=== PATIENT | female | born 1970 | race American Indian/Alaskan Native ===

== ENCOUNTER 2024-06-11 18:18 | Emergency (ER) | payer MEDICAID, SELFPAY ==
[2024-06-11 18:32] VITALS: BP 160/90; PULSE 95; O2SAT 98
[2024-06-11 18:33] VITALS: BP 121/85; PULSE 115; RESP 20; TEMP 36.6; O2SAT 100; BMI 22.1
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
[2024-06-11 20:17] LABS: MANUAL DIFF FLAG NO
[2024-06-11 20:19] LABS: Basophils Absolute Auto 0.1 X10*3/uL (0.0-0.2); Basophils Percent Auto 0.7 % (0-2); Eosinophils Percent Auto 0.2 % (0-4); Hematocrit 40.7 % (37.0-47.0); Hemoglobin 14.5 g/dl (12.0-16.0); Imm Gran Abs Auto 0.03 X10*3/uL (0.00-0.03); Imm Gran Pct Auto 0.3 % (0.0-0.4); Lymphocytes Absolute Auto 2.3 X10*3/uL (1.2-4.9); Lymphocytes Percent Auto 27.1 % (20-40); Mean Corpuscular HGB Conc 35.6 g/dl (31.0-35.0); Mean Corpuscular Hemoglobin 33.3 pg (27.0-33.0); Mean Corpuscular Volume 93.6 fL (80.0-98.0); Mean Platelet Volume 10.1 fL (9.4-12.3); Monocytes Absolute Auto 0.5 X10*3/uL (0.1-1.2); Monocytes Percent Auto 6.1 % (2-11); Neutrophils Absolute Auto 5.6 x10*3/uL (2.0-8.3); Neutrophils Percent Auto 65.6 % (45-73); Platelet Count 151 X10*3/uL (160-400); Red Blood Count 4.35 X10*6/uL (4.20-5.50); Red Cell Distribution Width 13.3 % (11.0-16.0); White Blood Count 8.6 X10*3/uL (4.8-10.8)
--- NOTE | 2024-06-11 20:43 | PC.NURSE ---
report called to hossein swann patient ambulatory into behavioral health pod at this time
[2024-06-11 20:47] LABS: Alanine Aminotransferase 15 U/L (0-31); Albumin Level 4.2 g/dL (3.5-5.0); Alkaline Phosphatase 96 U/L (39-117); Anion Gap 18 (12-20); Aspartate Amino Transferase 44 U/L (5-31); Bilirubin Direct 0.2 mg/dL (0.0-0.5); Bilirubin Total 0.5 mg/dL (0.0-1.0); Blood Urea Nitrogen 17 mg/dL (9-16); Carbon Dioxide 21 mmol/L (22-29); Chloride 106 mmol/L (96-108); Creatinine Clr Calc Pharmacy 88.1; Estimated Glomerular Filt Rate > 60; Ethanol 300 mg/dL; Glucose Random 92 mg/dL (60-115); HCG Quantitative < 2 mIU/mL; Potassium 3.7 mmol/L (3.3-5.1); Sodium 141 mmol/L (135-145); Total Protein 7.2 g/dL (6.5-8.0)
--- NOTE | 2024-06-11 20:53 | MHC.EDTECH ---
belongings moved to POD LOCKER #2
--- NOTE | 2024-06-11 20:56 | MHC.EDTECH ---
During foreign exchange clerk, I asked patient of she had any thoughts of harming herself, patient said Yes, thats why I am here . Security Bg present at the time
[2024-06-11 21:07] LABS: Appearance Urine Cloudy; Color Urine Dark Yellow; Glucose Urine UA Negative (Negative); Leukocyte Esterase Urine Negative (Negative); Nitrite Urine Negative (Negative); PH 5.5 (5.0-9.0); Specific Gravity - Urine >= 1.030 (1.005-1.025); UMIC TRIGGER UACC YES; Urine Blood Negative (Negative); Urine Ketones Trace mg/dL (Negative); Urine Protein 100 (2+) mg/dL (Neg-Trace)
[2024-06-11 21:13] LABS: Bacteria Urine 2+ (None Seen); Hyaline Casts Urine >20 /LPF (0-2); RBC Urine 0-2 /HPF (0-2); UACC Culture Trigger YES
[2024-06-11 21:18] LABS: Amphetamine Screen Urine Not Detected (Not Detect); Barbiturates, Urine Not Detected (Not Detect); Benzodiazepines Screen Urine Not Detected (Not Detect); Buprenorphine Scr Not Detected (Not Detect); Cannabinoid Screen Urine Not Detected (Not Detect); Cocaine Screen Urine Not Detected (Not Detect); Fentanyl, urine Not Detected (Not Detect); Methadone Screen, Urine Not Detected (Not Detect); Opiate Screen Urine Not Detected (Not Detect); Oxycodone Screen Urine Not Detected (Not Detect); Phencyclidine Screen Urine Not Detected (Not Detect)
[2024-06-11] MEDS: LORazepam 1 MG TABLET 2 MG PO (23:42)
[2024-06-12 04:53] VITALS: BP 151/79; PULSE 110; RESP 20; TEMP 36.6; O2SAT 97
[2024-06-12] MEDS: LORazepam 1 MG TABLET 2 MG PO (05:38)
--- NOTE | 2024-06-12 06:27 | PC.NURSE ---
Patient slept most part of the night, up out of bed few times, CIWA at 0516 was 10, provider notified/ordered Ativan 2 mg PO administered at 0531, currently in bed appears sleeping, med rec completed/pending provider's approval, care consult ordered pending provider's approval, labs completed/resulted, 15 minutes safety check, no behavior and safety concerns, will continue to monitor
--- NOTE | 2024-06-12 12:34 | PC.NURSE ---
Recovery deep submergence vehicle crewmember in room with pt at this time
--- NOTE | 2024-06-12 13:02 | MHC.RECOVRN ---
Addendum entered by Bennett Calderon RN 06/12/24 13:19: Final disposition discussed with MILLICENT Storm and Dr Maurizio MD. Pt requesting discharge and will be going back home with resources provided tasha. Original Note: Pt seen by the CARE Team (by MILLICENT Storm)- crisis assessment completed with final disposition being: discharge back home with referrals to [facility] (3-day follow up), and referrals to [facility] as well as to the Recovery (CARE team) RN. Consequently, this RN met with pt and discussed outpatient resources for alcohol use disorder including but not limited to the [facility]. We also discussed harm reduction strategies for alcohol use disorder such as counting drinks, hydrating or diluting drinks with water, and taking vitamins. Encouraged pt to discuss with her primary care doctor the topic of menopause and how it can be affected by alcohol use, as well as to consider SANIA (Medications for alcohol use disorder) and recovery coaching. Discussed with pt the dangers of quitting alcohol abruptly or cold turkey and encouraged pt to not try to quit drinking alone or abruptly. Multiple pathways to recovery explored and discussed with pt such as ATS, CSS, IOPs and AA/SMART Recovery. Pt is not willing to go to detox at the moment but is planning on visiting the [facility] during walk-in hours M-F 8-4pm. See Recovery/ assessment for more info.
[2024-06-12 13:19] VITALS: BP 136/78; PULSE 86; RESP 20; TEMP 36.6; O2SAT 97
--- NOTE | 2024-06-12 13:42 | MHC.CARE ---
Pt has been referred to [facility] for a 3 day follow up and a 7 day alert. Both have been activated.
--- NOTE | 2024-06-14 14:16 | MHC.CARE ---
[facility] referral complete
== END 2024-06-12 13:22 | disposition home or self-care (01) ==
PROVIDERS: Emergency Provider Emergency Medicine
DX: F32.A Depression, unspecified (principal); F10.920 Alcohol use, unspecified with intoxication, uncomplicated; Y90.8 Blood alcohol level of 240 mg/100 ml or more; F43.10 Post-traumatic stress disorder, unspecified; Z79.899 Other long term (current) drug therapy
CPT/HCPCS: 36415; 80048; 80076; 80307; 81001; 84702; 85025; 87086; 99284; S9485

== ENCOUNTER 2024-06-15 20:28 | Inpatient (IN) | payer OTHER, SELFPAY ==
[2024-06-15 20:45] VITALS: BP 130/90; BP 140/99; PULSE 105; PULSE 98; RESP 16; TEMP 36.4; O2SAT 97; O2SAT 98; BMI 22.3
--- NOTE | 2024-06-15 21:10 | PC.NURSE ---
t/w redirected client soon after arrival about using foul language and elevated volume patient therafter agreed she would keep her volume in control.
--- NOTE | 2024-06-15 21:23 | PC.NURSE ---
cleint swearing at staff. youre being fucking rude when redirected to not sit on floor
[2024-06-15 21:26] LABS: Alanine Aminotransferase 14 U/L (0-31); Albumin Level 4.3 g/dL (3.5-5.0); Alkaline Phosphatase 92 U/L (39-117); Anion Gap 14 (12-20); Aspartate Amino Transferase 30 U/L (5-31); Bilirubin Total 0.5 mg/dL (0.0-1.0); Blood Urea Nitrogen 11 mg/dL (9-16); Calcium 9.3 mg/dL (8.4-10.2); Carbon Dioxide 27 mmol/L (22-29); Chloride 108 mmol/L (96-108); Creatinine Clr Calc Pharmacy 98.7; Estimated Glomerular Filt Rate > 60; Ethanol 345 mg/dL; Glucose Random 98 mg/dL (60-115); Potassium 4.4 mmol/L (3.3-5.1); Sodium 145 mmol/L (135-145); Total Protein 7.4 g/dL (6.5-8.0)
[2024-06-15 21:27] LABS: Acetaminophen LAB < 3 mcg/mL (<30); Salicylate < 5.0 mg/dL (15-30)
[2024-06-15 21:50] LABS: Appearance Urine Clear; Color Urine Yellow; Glucose Urine UA Negative (Negative); Leukocyte Esterase Urine Negative (Negative); Nitrite Urine Negative (Negative); PH 6.5 (5.0-9.0); Specific Gravity - Urine <= 1.005 (1.005-1.025); Urine Blood Negative (Negative); Urine Ketones Negative (Negative); Urine Protein Negative (Neg-Trace)
[2024-06-15 22:00] LABS: Amphetamine Screen Urine Not Detected (Not Detect); Barbiturates, Urine Not Detected (Not Detect); Benzodiazepines Screen Urine Not Detected (Not Detect); Buprenorphine Scr Not Detected (Not Detect); Cannabinoid Screen Urine Not Detected (Not Detect); Cocaine Screen Urine Not Detected (Not Detect); Fentanyl, urine Not Detected (Not Detect); Methadone Screen, Urine Not Detected (Not Detect); Opiate Screen Urine Not Detected (Not Detect); Oxycodone Screen Urine Not Detected (Not Detect); Phencyclidine Screen Urine Not Detected (Not Detect)
[2024-06-15 22:00] LABS: MANUAL DIFF FLAG NO
[2024-06-15 22:25] LABS: Basophils Percent Auto 0.6 % (0-2); Eosinophils Absolute Auto 0.2 X10*3/uL (0.0-0.4); Eosinophils Percent Auto 2.3 % (0-4); Hematocrit 40.3 % (37.0-47.0); Hemoglobin 14.1 g/dl (12.0-16.0); Imm Gran Abs Auto 0.02 X10*3/uL (0.00-0.03); Imm Gran Pct Auto 0.3 % (0.0-0.4); Lymphocytes Percent Auto 44.2 % (20-40); Mean Corpuscular Hemoglobin 33.5 pg (27.0-33.0); Mean Corpuscular Volume 95.7 fL (80.0-98.0); Mean Platelet Volume 10.7 fL (9.4-12.3); Monocytes Absolute Auto 0.4 X10*3/uL (0.1-1.2); Monocytes Percent Auto 6.3 % (2-11); Neutrophils Absolute Auto 3.2 x10*3/uL (2.0-8.3); Neutrophils Percent Auto 46.3 % (45-73); PLT CLUMP 1; Red Blood Count 4.21 X10*6/uL (4.20-5.50); SCAN SMEAR FLAG 1
[2024-06-15 22:26] LABS: White Blood Count 6.8 X10*3/uL (4.8-10.8)
[2024-06-15 22:27] LABS: Platelet Count 112 X10*3/uL (160-400)
--- NOTE | 2024-06-15 22:28 | PC.NURSE ---
client attmepting to antagaonize staff but redirectable, perception seems skewed.
--- NOTE | 2024-06-15 22:37 | PC.NURSE ---
patient laid self on floor of room theres something wrong w my brain i have fibromyalgia patient seems impaired. encouraged to not lay on floor but patient is electing to at this time
--- NOTE | 2024-06-15 23:35 | PC.NURSE ---
Patient coming out of her room and stated you know for all the rules you have for us you would think you would be more quiet Attempted to explain to pt that tw just came on shift and is receiving report before pt stormed off to the bathroom then returned back to her room. Pt then came back to nurses station aggressively stated you clearly didn't hear me the first time and returned back to her room. She approached the nurse station a third time to request ear plugs. PT provided ear plugs and returned again the nurses station being argumentative and loud. Attempted to deescalate and redirect pt to her room however she refused. Security and charge nurse called to bedside
[2024-06-15] MEDS: diphenhydrAMINE HCL 25 MG CAPSULE 50 MG PO (23:53)
[2024-06-15] MEDS: LORazepam 1 MG TABLET 2 MG PO (23:53)
[2024-06-15] MEDS: HaloperidoL 5 MG TABLET PO (23:53)
--- NOTE | 2024-06-15 23:56 | PC.NURSE ---
Pt requesting PO meds for anxiety. Tomas Soriano made aware, meds given per MAR.
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
--- NOTE | 2024-06-16 08:53 | MHC.CARE ---
Pt will be a Dual DX bedsearch
[2024-06-16] MEDS: LORazepam 0.5 MG TABLET PO (09:23)
[2024-06-16 09:30] VITALS: BP 125/79; PULSE 93; RESP 16; TEMP 37; O2SAT 96
--- NOTE | 2024-06-16 09:31 | PC.NURSE ---
Pt reports she is not really a daily drinker but reports since Friday her drinking has been escalating. Denies ever going through alcohol withdrawal.
--- NOTE | 2024-06-16 09:37 | PC.NURSE ---
Pt requesting to speak to CARE team about admission, currently refusing EKG. S12 in charge, Jaron with CARE team made aware.
--- NOTE | 2024-06-16 09:51 | MHC.EDTECH ---
patient refused to do EKG until patient is seen by care team
--- NOTE | 2024-06-16 12:32 | PC.NURSE ---
Pt refusing EKG, admissions made aware.
--- NOTE | 2024-06-16 12:59 | PHA.MEDREC ---
Pharmacy Consult ? Medication Reconciliation Pharmacy has reviewed the medication reconciliation completed by nursing.
--- NOTE | 2024-06-16 13:17 | PC.NURSE ---
Report called to Fior GARCES on M3
[2024-06-16 13:45] VITALS: BP 126/62; PULSE 98; RESP 16; TEMP 37.1; O2SAT 98
--- NOTE | 2024-06-16 14:59 | HO.PSYADMNOT ---
[facility] Date of Service: 06/16/24 Chief Complaint: crisis Sources of Information: patient interviewed, chart reviewed and crisis/core team assessment reviewed HPI Subjective Notes: Nath Warning and Conditional Voluntary Narrative: Patient is a 54-year-old female with history of MDD, PTSD and alcohol use disorder who presented to ER after consuming 16 nips of alcohol and making suicidal statements secondary to increased life stressors. Per crisis report, patient reports she consumes 16 nips of fireball and began making suicidal statements, reports family conflicts. Patient reported she had multiple complaints, tangential, talking about going into the [place] and escaping her family. This is patient's 1st inpatient psychiatric hospitalization. Patient reports history of alcohol use disorder. Denies any other substance use. She reports never being prescribed psychiatric medications. Patient reports overwhelming sadness after a recent conversation with her mother. She reports having a desire to get her life back after losing her apartment. denied HI/VH/AH. Patient reports she began drinking 3 years ago and it has been steadily increasing. Alcohol level on arrival was 345. She denies daily alcohol consumption and reports episodes of binge drinking. During admission assessment patient presents alert and oriented x3. Calm and cooperative. Patient reports feeling depressed; patient stated, I thought my mom would want to hear that I was getting a dance coach and then it turned into an argument. I went into the [facility] and I felt a lot of sadness and overwhelmed. I then called the police to bring me here . Patient reports increased alcohol use since July 2023, when she lost her apartment due to landlord selling the home. She denies outpatient psychiatric providers but would like referrals. She reports a suicide attempt via overdose on Tylenol at age 16. Denies any other attempts. Denies history of SIB. Patient reports history of trying multiple psychiatric medications such as Prozac, Zoloft, Wellbutrin and gabapentin; she reports many of them caused side effects; unable to name side effects. Discussed starting on Depakote; risks/benefits reviewed. Patient agreed to trial. Past Psychiatric History: denies outpatient psychiatric providers but would like referrals. suicide attempt via overdose on Tylenol at age 16. Denies any other attempts. Denies history of SIB. Patient reports history of trying multiple psychiatric medications such as Prozac, Zoloft, Wellbutrin and gabapentin; she reports many of them caused side effects; unable to name side effects. Medical Evaluation Reviewed: Yes [facility] Family History: Mother: Alcoholism Social History: Staying at a friend's house. Single. No kids. Unemployed. Associates degree. Substance History: Patient reports drinking a sleeve to 2 sleeve depending on the day. Denies other substance use. Trauma History: Yes Diagnostics Vital Signs (24Hr): Vital Signs - 24 hr 06/15/24 20:45 06/16/24 09:30 Temperature 97.5 F 98.6 F Pulse Rate 98 93 Respiratory Rate 16 16 Blood Pressure 140/99 H 125/79 Pulse Oximetry 98 96 Oxygen Delivery Method Room Air Room Air BMI result Body Mass Index 22.3 Labs 06/15/24 21:56 06/15/24 21:06 Labs: Laboratory Results - last 48 hr 06/15/24 06/15/24 06/15/24 21:06 21:40 21:56 WBC Cancelled 6.8 RBC Cancelled 4.21 Hgb Cancelled 14.1 Hct Cancelled 40.3 MCV Cancelled 95.7 MCH Cancelled 33.5 H MCHC Cancelled 35.0 RDW Cancelled 14.0 Plt Count Cancelled 112 L D MPV Cancelled 10.7 Immature Gran % (Auto) Cancelled 0.3 Neut % (Auto) Cancelled 46.3 Lymph % (Auto) Cancelled 44.2 H [place] % (Auto) Cancelled 6.3 Eos % (Auto) Cancelled 2.3 Baso % (Auto) Cancelled 0.6 Lymph # (Auto) Cancelled 3.0 [place] # (Auto) Cancelled 0.4 Eos # (Auto) Cancelled 0.2 Baso # (Auto) Cancelled 0.0 Abs Immat Gran (auto) Cancelled 0.02 Absolute Neuts (auto) Cancelled 3.2 Absolute Nucleated RBC Cancelled 0.000 Nucleated RBC % (auto) Cancelled 0.0 Sodium 145 Potassium 4.4 Chloride 108 Carbon Dioxide 27 Anion Gap 14 BUN 11 Creatinine 0.61 Estim Creat Clear Calc 98.7 Estimated GFR > 60 Random Glucose 98 Calcium 9.3 Total Bilirubin 0.5 AST 30 ALT 14 Alkaline Phosphatase 92 Total Protein 7.4 Albumin 4.3 Urine Color Yellow Urine Appearance Clear Urine pH 6.5 Ur Specific [place] <= 1.005 Urine Protein Negative Urine Glucose (UA) Negative Urine Ketones Negative Urine Blood Negative Urine Nitrite Negative Ur Leukocyte Esterase Negative Salicylates < 5.0 L Urine Opiates Screen Not Detected Ur Buprenorphine Scrn Not Detected Ur Oxycodone Screen Not Detected Urine Methadone Screen Not Detected Urine Fentanyl Screen Not Detected Acetaminophen < 3 Ur Barbiturates Screen Not Detected Ur Phencyclidine Scrn Not Detected Ur Amphetamines Screen Not Detected U Benzodiazepines Scrn Not Detected Urine Cocaine Screen Not Detected U Marijuana (THC) Screen Not Detected Ethyl Alcohol 345 H* Meds/Allergies Meds Home Medications ?Medication ?Instructions ?Recorded ?Confirmed ?Type amitriptyline 10 mg tablet 20 - 40 mg PO BEDTIME 06/16/24 06/16/24 History lorazepam 0.5 mg tablet 0.5 mg PO BEDTIME PRN Anxiety 06/16/24 06/16/24 History Allergies Allergies Allergy/AdvReac Type Severity Reaction Status Date / Time meperidine [From Demerol] Allergy Anaphylaxis Verified 06/15/24 20:51 morphine Allergy Anaphylaxis Verified 06/15/24 20:51 quetiapine [From Seroquel] Allergy Anaphylaxis Verified 06/15/24 20:51 tramadol Allergy Anaphylaxis Verified 06/15/24 20:51 Mental Status Exam Mental Status Exam Narrative: Pt is alert and oriented; behavior is cooperative and calm, guarded; dressed in casual attire; mood is described as depressed ; eye contact appropriate; Speech is normal rate, volume and not pressured; thought process is organized; Thought content is on tx; denies SI/HI/VH/AH. Assessment & Plan Assessment & Plan (1) MDD (major depressive disorder), recurrent episode, moderate: Status: Acute Code(s): F33.1 - Major depressive disorder, recurrent, moderate (2) PTSD (post-traumatic stress disorder): Status: Acute Code(s): F43.10 - Post-traumatic stress disorder, unspecified (3) Alcohol use disorder: Status: Acute Code(s): F10.90 - Alcohol use, unspecified, uncomplicated Plan Patient is a 54-year-old female with history of MDD, PTSD and alcohol use disorder who presented to ER after consuming 16 nips of alcohol and making suicidal statements secondary to increased life stressors. Plan: CV 15 minute safety checks CIWA protocol Continue home medications Start: Depakote ER 250 mg PO bedtime Referral to outpatient psychiatric providers Obtain collateral Encourage groups Discharge planning Patient educated on: diagnosis and medication risk/benefits Reason for continued inpatient stay Substantial Risk for: med/psych decompensation Statement Statement: I have reviewed the history and physical and performed a pertinent examination on my patient. No changes have occurred unless specified. If the History and Physical was not performed prior to admission, the Hospitalist's service will be consulted for completing the admission physical. Time Spent With Patient Time: Total time managing care of this patient today _60___ minutes.
--- NOTE | 2024-06-16 17:08 | PC.ADMIT ---
Addendum entered by Sanna Jiang RN 06/16/24 17:19: pt has CIWA ordered Q4 Original Note: Ninfa arrived to M3 at 1340, vitals obtained, skin/safety check performed and patient oriented to the unit. Pt signed a CV then completed a TDN. Ninfa is a 54yr old, , unhoused female? BIBA to? [facility] after drinking 16 nips of fireball and making SI statements. Pt reports she went to her mother's house to seek help with her drinking she's a member of [employer] and helps so many people but couldn't even help me . Pt also states mother was cold and mean and pt became overcome with sadness . Pt has hx of problematic alcohol use however no diagnosis of mental illness, SI, or attempts. Pt also has no hx of IPLOC. Pt reports the conversatin with hr mother added to her already feeling depressed, anxious, and ?thsi overwhelming sadness? Pt denies disturbances with sleep or appetite. She reports HX of outpt therapy but not currently ?because I didn;t get much out of it? Pt states her drinking became out of control about the start of the pandemic and isolation was a contributing factor.?Pt is not a smoker, Tox screen shows BAL 345. Pt is on 15min checks for safety
[2024-06-16 19:49] VITALS: BP 139/84; PULSE 103; RESP 16; TEMP 36.4; O2SAT 99
[2024-06-16] MEDS: Divalproex Sodium ER 250 MG TAB.ER.24H PO (21:54)
[2024-06-16] MEDS: Amitriptyline HCl 25 MG TABLET PO (21:54)
[2024-06-17 07:40] VITALS: BP 112/68; PULSE 76; RESP 16; TEMP 36.8; O2SAT 96
[2024-06-17] MEDS: Thiamine HCL 100 MG TABLET PO (08:21)
[2024-06-17] MEDS: Nicotine 21 MG PATCH.TD24 TRANSDERMA (08:21)
--- NOTE | 2024-06-17 11:03 | HO.PSYCHPN ---
Subjective Subjective Date of Service: 06/17/24 Reason For Visit: crisis Subjective Notes: 3 Day Interim History: 3 day up on 06/21/24. Patient reports feeling anxious and depressed ; pt stated, I'm not having withdrawal symptoms because I binge drink. I don't drink everyday. I'm depressed but I don't want to stay here. I need to leave to go to my job interviews . per nursing, slept 8 hours. denies SI/HI/VH/AH. pt denies side effects from starting Depakote. Continue current tx plan. Medication Compliance: Yes Side effects from medications: No Attending Groups: No Mental Status Exam Mental Status Exam Narrative: Pt is alert and oriented; behavior is cooperative and calm, guarded; dressed in casual attire; mood is described as depressed ; eye contact appropriate; Speech is normal rate, volume and not pressured; thought process is organized; Thought content is on discharge; denies SI/HI/VH/AH. Diagnostics Vital Signs (24Hr): Vital Signs - 24 hr 06/16/24 13:45 06/16/24 19:49 06/17/24 07:40 Temperature 98.7 F 97.5 F 98.3 F Pulse Rate 98 103 H 76 Respiratory Rate 16 16 16 Blood Pressure 126/62 139/84 112/68 Pulse Oximetry 98 99 96 Oxygen Delivery Method Room Air Room Air Room Air BMI result Body Mass Index 22.3 Labs 06/15/24 21:56 06/17/24 14:39 Labs: Laboratory Results - last 48 hr 06/15/24 06/15/24 06/15/24 21:06 21:40 21:56 WBC Cancelled 6.8 RBC Cancelled 4.21 Hgb Cancelled 14.1 Hct Cancelled 40.3 MCV Cancelled 95.7 MCH Cancelled 33.5 H MCHC Cancelled 35.0 RDW Cancelled 14.0 Plt Count Cancelled 112 L D MPV Cancelled 10.7 Immature Gran % (Auto) Cancelled 0.3 Neut % (Auto) Cancelled 46.3 Lymph % (Auto) Cancelled 44.2 H [place] % (Auto) Cancelled 6.3 Eos % (Auto) Cancelled 2.3 Baso % (Auto) Cancelled 0.6 Lymph # (Auto) Cancelled 3.0 [place] # (Auto) Cancelled 0.4 Eos # (Auto) Cancelled 0.2 Baso # (Auto) Cancelled 0.0 Abs Immat Gran (auto) Cancelled 0.02 Absolute Neuts (auto) Cancelled 3.2 Absolute Nucleated RBC Cancelled 0.000 Nucleated RBC % (auto) Cancelled 0.0 Sodium 145 Potassium 4.4 Chloride 108 Carbon Dioxide 27 Anion Gap 14 BUN 11 Creatinine 0.61 Estim Creat Clear Calc 98.7 Estimated GFR > 60 Random Glucose 98 Calcium 9.3 Total Bilirubin 0.5 AST 30 ALT 14 Alkaline Phosphatase 92 Total Protein 7.4 Albumin 4.3 Urine Color Yellow Urine Appearance Clear Urine pH 6.5 Ur Specific [place] <= 1.005 Urine Protein Negative Urine Glucose (UA) Negative Urine Ketones Negative Urine Blood Negative Urine Nitrite Negative Ur Leukocyte Esterase Negative Salicylates < 5.0 L Urine Opiates Screen Not Detected Ur Buprenorphine Scrn Not Detected Ur Oxycodone Screen Not Detected Urine Methadone Screen Not Detected Urine Fentanyl Screen Not Detected Acetaminophen < 3 Ur Barbiturates Screen Not Detected Ur Phencyclidine Scrn Not Detected Ur Amphetamines Screen Not Detected U Benzodiazepines Scrn Not Detected Urine Cocaine Screen Not Detected U Marijuana (THC) Screen Not Detected Ethyl Alcohol 345 H* Medications Medications Current Medications Acetaminophen (Acetaminophen 325 Mg Tablet) 650 mg PO Q6H PRN PRN Reason: Headache/Pain, Scale 1-10 Al Hydroxide/Mg Hydroxide (Magnesium Hydrox/Alum Hydrox 30 Ml Oral.Susp) 30 ml PO Q6H PRN PRN Reason: Heartburn/Nausea Amitriptyline HCl (Amitriptyline Hcl 25 Mg Tablet) 25 mg PO BEDTIME [facility]INA Last Admin: 06/16/24 21:54 Dose: 25 mg Divalproex Sodium (Divalproex Sodium Er 250 Mg Tab.Er.24h) 250 mg PO BEDTIME CORINA Last Admin: 06/16/24 21:54 Dose: 250 mg Hydroxyzine HCl (Hydroxyzine Hcl 25 Mg Tablet) 25 mg PO Q6H PRN PRN Reason: mild anxiety Lorazepam (Lorazepam 1 Mg Tablet) 1 mg PO Q2H PRN PRN Reason: CIWA 8-11 Lorazepam (Lorazepam 1 Mg Tablet) 2 mg PO Q2H PRN PRN Reason: CIWA 12-15 Lorazepam (Lorazepam 1 Mg Tablet) 3 mg PO Q2H PRN PRN Reason: CIWA > 15, and call Magnesium Hydroxide (Milk Of Magnesia 30 Ml Oral.Susp) 30 ml PO DAILY PRN PRN Reason: Constipation Nicotine (Nicotine 21 Mg Patch.Td24) 21 mg TRANSDERMA DAILY [facility] Last Admin: 06/17/24 08:21 Dose: 21 mg Nicotine Polacrilex (Nicotine Polacrilex 2 Mg Gum) 4 mg BUCCAL Q2H PRN PRN Reason: Nicotine Cravings Thiamine HCl (Thiamine Hcl 100 Mg Tablet) 100 mg PO DAILY [facility] Last Admin: 06/17/24 08:21 Dose: 100 mg Trazodone HCl (Trazodone Hcl 50 Mg Tablet) 50 mg PO BEDTIME MRX1 PRN PRN Reason: Insomnia Allergies Allergies Allergy/AdvReac Type Severity Reaction Status Date / Time meperidine [From Demerol] Allergy Anaphylaxis Verified 06/15/24 20:51 morphine Allergy Anaphylaxis Verified 06/15/24 20:51 quetiapine [From Seroquel] Allergy Anaphylaxis Verified 06/15/24 20:51 tramadol Allergy Anaphylaxis Verified 06/15/24 20:51 Assessment & Plan Assessment & Plan (1) MDD (major depressive disorder), recurrent episode, moderate: Status: Acute Code(s): F33.1 - Major depressive disorder, recurrent, moderate (2) PTSD (post-traumatic stress disorder): Status: Acute Code(s): F43.10 - Post-traumatic stress disorder, unspecified (3) Alcohol use disorder: Status: Acute Code(s): F10.90 - Alcohol use, unspecified, uncomplicated Plan Patient is a 54-year-old female with history of MDD, PTSD and alcohol use disorder who presented to ER after consuming 16 nips of alcohol and making suicidal statements secondary to increased life stressors. Plan: CV 15 minute safety checks CIWA protocol Continue home medications Start: Depakote ER 250 mg PO bedtime Referral to outpatient psychiatric providers Obtain collateral Encourage groups Discharge planning 06/17: 3 day up on 06/21/24. Patient reports feeling anxious and depressed ; pt stated, I'm not having withdrawal symptoms because I binge drink. I don't drink everyday. I'm depressed but I don't want to stay here. I need to leave to go to my job interviews . per nursing, slept 8 hours. denies SI/HI/VH/AH. pt denies side effects from starting Depakote. Continue current tx plan. Patient educated on: diagnosis, medication risk/benefits and therapeutic strategies Reason for continued inpatient stay Substantial Risk for: med/psych decompensation Time Spent With Patient Time: Total time managing care of this patient today __20__ minutes.
--- NOTE | 2024-06-17 11:18 | MHC.RECOVRN ---
Attempted to meet with pt after receiving Addiction Medicine consult for positive AUDIT C. Attempted to meet with pt x2, pt meeting with providers. Will reattempt later. Teresa Norman APRN, aware.
[2024-06-17 15:05] LABS: Estimated Average Glucose 100 mg/dL; Hemoglobin A1C 119.1358 umol/L; Hemoglobin A1c % 5.1 % (<6.0); Total Hemoglobin (HGBA1C) 3642.8193 umol/L
[2024-06-17 15:14] LABS: Alanine Aminotransferase 25 U/L (0-31); Albumin Level 4.5 g/dL (3.5-5.0); Anion Gap 15 (12-20); Aspartate Amino Transferase 35 U/L (5-31); Bilirubin Total 0.7 mg/dL (0.0-1.0); Blood Urea Nitrogen 22 mg/dL (9-16); Calcium 10.3 mg/dL (8.4-10.2); Carbon Dioxide 26 mmol/L (22-29); Chloride 104 mmol/L (96-108); Cholesterol 199 mg/dL (<200); Creatinine Clr Calc Pharmacy 78.1; Estimated Glomerular Filt Rate > 60; Glucose Random 110 mg/dL (60-115); HDL Cholesterol 85 mg/dL (>40); LDL Cholesterol Calculated 93 mg/dL (<100); Potassium 4.8 mmol/L (3.3-5.1); Sodium 140 mmol/L (135-145); Total Protein 7.5 g/dL (6.5-8.0); Triglycerides 106 mg/dL (<150)
[2024-06-17 15:19] LABS: Alkaline Phosphatase 141 U/L (39-117)
[2024-06-17 19:30] VITALS: BP 124/72; PULSE 113; RESP 14; TEMP 36.4; O2SAT 99
[2024-06-17] MEDS: Amitriptyline HCl 25 MG TABLET PO (21:31)
[2024-06-17] MEDS: Divalproex Sodium ER 250 MG TAB.ER.24H PO (21:31)
[2024-06-18 07:10] VITALS: BP 104/67; PULSE 78; RESP 14; TEMP 36.6; O2SAT 98
[2024-06-18] MEDS: Thiamine HCL 100 MG TABLET PO (09:05)
[2024-06-18] MEDS: Nicotine 21 MG PATCH.TD24 TRANSDERMA (09:05)
--- NOTE | 2024-06-18 14:01 | P.DS_ITS ---
DS: Providers Provider Date of Service: 06/18/24 Date of admission: 06/16/24 12:37 Date of discharge: 06/18/24 Primary care physician: Nancy Kruger MD Admitting clinician: Ramya Carter Attending physician on admission: Michael Ballesteros Consults: 06/16/24 16:21 Addiction Medicine Provider Routine Consulting Provider: Addiction Covering Reason for consultation: ETOH use Attending physician on discharge: Michael Ballesteros Discharging clinician: Ramya Carter DS: Diagnosis Discharge Diagnosis (1) MDD (major depressive disorder), recurrent episode, moderate: Status: Acute (2) PTSD (post-traumatic stress disorder): Status: Acute (3) Alcohol use disorder: Status: Acute DS: Medications Discharge Medications Home Medications: Home Medications ?Medication ?Instructions ?Recorded ?Confirmed amitriptyline 10 mg tablet 20 - 40 mg PO BEDTIME 06/16/24 06/16/24 lorazepam 0.5 mg tablet 0.5 mg PO BEDTIME PRN Anxiety 06/16/24 06/16/24 Mental Status Exam Mental Status Exam Narrative: Pt is alert and oriented; behavior is cooperative and calm, guarded; dressed in casual attire; mood is described as good ; eye contact appropriate; Speech is normal rate, volume and not pressured; thought process is organized; Thought content is on discharge; denies SI/HI/VH/AH. Data Data Completed and Pending Completed studies during hospitalization [Text1]: 06/15/24 06/15/24 06/15/24 21:06 21:40 21:56 WBC Cancelled 6.8 RBC Cancelled 4.21 Hgb Cancelled 14.1 Hct Cancelled 40.3 MCV Cancelled 95.7 MCH Cancelled 33.5 H MCHC Cancelled 35.0 RDW Cancelled 14.0 Plt Count Cancelled 112 L D MPV Cancelled 10.7 Immature Gran % (Auto) Cancelled 0.3 Neut % (Auto) Cancelled 46.3 Lymph % (Auto) Cancelled 44.2 H Ballard % (Auto) Cancelled 6.3 Eos % (Auto) Cancelled 2.3 Baso % (Auto) Cancelled 0.6 Lymph # (Auto) Cancelled 3.0 Ballard # (Auto) Cancelled 0.4 Eos # (Auto) Cancelled 0.2 Baso # (Auto) Cancelled 0.0 Abs Immat Gran (auto) Cancelled 0.02 Absolute Neuts (auto) Cancelled 3.2 Absolute Nucleated RBC Cancelled 0.000 Nucleated RBC % (auto) Cancelled 0.0 Sodium 145 Potassium 4.4 Chloride 108 Carbon Dioxide 27 Anion Gap 14 BUN 11 Creatinine 0.61 Estim Creat Clear Calc 98.7 Estimated GFR > 60 Random Glucose 98 Estimat Average Glucose Hemoglobin A1c % Calcium 9.3 Total Bilirubin 0.5 AST 30 ALT 14 Alkaline Phosphatase 92 Total Protein 7.4 Albumin 4.3 Triglycerides Cholesterol LDL Cholesterol, Calc HDL Cholesterol Urine Color Yellow Urine Appearance Clear Urine pH 6.5 Ur Specific [place] <= 1.005 Urine Protein Negative Urine Glucose (UA) Negative Urine Ketones Negative Urine Blood Negative Urine Nitrite Negative Ur Leukocyte Esterase Negative Salicylates < 5.0 L Urine Opiates Screen Not Detected Ur Buprenorphine Scrn Not Detected Ur Oxycodone Screen Not Detected Urine Methadone Screen Not Detected Urine Fentanyl Screen Not Detected Acetaminophen < 3 Ur Barbiturates Screen Not Detected Ur Phencyclidine Scrn Not Detected Ur Amphetamines Screen Not Detected U Benzodiazepines Scrn Not Detected Urine Cocaine Screen Not Detected U Marijuana (THC) Screen Not Detected Ethyl Alcohol 345 H* 06/17/24 14:39 WBC RBC Hgb Hct MCV MCH MCHC RDW Plt Count MPV Immature Gran % (Auto) Neut % (Auto) Lymph % (Auto) Ball[place] % (Auto) Eos % (Auto) Baso % (Auto) Lymph # (Auto) [place] # (Auto) Eos # (Auto) Baso # (Auto) Abs Immat Gran (auto) Absolute Neuts (auto) Absolute Nucleated RBC Nucleated RBC % (auto) Sodium 140 Potassium 4.8 Chloride 104 Carbon Dioxide 26 Anion Gap 15 BUN 22 H Creatinine 0.77 Estim Creat Clear Calc 78.1 Estimated GFR > 60 Random Glucose 110 Estimat Average Glucose 100 Hemoglobin A1c % 5.1 Calcium 10.3 H D Total Bilirubin 0.7 AST 35 H ALT 25 Alkaline Phosphatase 141 H Total Protein 7.5 Albumin 4.5 Triglycerides 106 Cholesterol 199 LDL Cholesterol, Calc 93 HDL Cholesterol 85 Urine Color Urine Appearance Urine pH Ur Specific [place] Urine Protein Urine Glucose (UA) Urine Ketones Urine Blood Urine Nitrite Ur Leukocyte Esterase Salicylates Urine Opiates Screen Ur Buprenorphine Scrn Ur Oxycodone Screen Urine Methadone Screen Urine Fentanyl Screen Acetaminophen Ur Barbiturates Screen Ur Phencyclidine Scrn Ur Amphetamines Screen U Benzodiazepines Scrn Urine Cocaine Screen U Marijuana (THC) Screen Ethyl Alcohol DS: Summary Hospital Course Hospital Course: Patient is a 54-year-old female with history of MDD, PTSD and alcohol use disorder who presented to ER after consuming 16 nips of alcohol and making suicidal statements secondary to increased life stressors. Per crisis report, patient reports she consumes 16 nips of fireball and began making suicidal statements, reports family conflicts. Patient reported she had multiple complaints, tangential, talking about going into the [facility] and escaping her family. This is patient's 1st inpatient psychiatric hospitalization. Patient reports history of alcohol use disorder. Denies any other substance u se. She reports never being prescribed psychiatric medications. Patient reports overwhelming sadness after a recent conversation with her mother. She reports having a desire to get her life back after losing her apartment. denied HI/VH/AH. Patient reports she began drinking 3 years ago and it has been steadily increasing. Alcohol level on arrival was 345. She denies daily alcohol consumption and reports episodes of binge drinking. During admission assessment patient presents alert and oriented x3. Calm and cooperative. Patient reports feeling depressed; patient stated, I thought my mom would want to hear that I was getting a [employer] recovery operator and then it turned into an argument. I went into the [facility] and I felt a lot of sadness and overwhelmed. I then called the police to bring me here . Patient reports increased alcohol use since July 2023, when she lost her apartment due to landlord selling the home. She denies outpatient psychiatric providers but would like referrals. She reports a suicide attempt via overdose on Tylenol at age 16. Denies any other attempts. Denies history of SIB. Patient reports history of trying multiple psychiatric medications such as Prozac, Zoloft, Wellbutrin and gabapentin; she reports many of them caused side effects; unable to name side effects. Discussed starting on Depakote; risks/benefits reviewed. Patient agreed to trial. Plan: CV 15 minute safety checks CIWA protocol Continue home medications Start: Depakote ER 250 mg PO bedtime Referral to outpatient psychiatric providers Obtain collateral Encourage groups Discharge planning 06/17: 3 day up on 06/21/24. Patient reports feeling anxious and depressed ; pt stated, I'm not having withdrawal symptoms because I binge drink. I don't drink everyday. I'm depressed but I don't want to stay here. I need to leave to go to my job interviews . per nursing, slept 8 hours. denies SI/HI/VH/AH. pt denies side effects from starting Depakote. Continue current tx plan. Patient reports feeling good ; focused on discharge. Pt stated, I think I got everything I can from being here. I'm not interested in being medicated. I only want to do therapy. I'm not having any thoughts to harm myself. I don't think this is the right place for me to get treatment . Patient denies SI/HI/VH/AH. She reports she plans on following up with outpatient providers. Status at Discharge Cognitive/behavioral status at discharge: Patient has insight and demonstrates good judgment in terms of wanting to pursue treatment. Patient has a safety plan that includes presenting to the closest ER or calling 911 if feeling unsafe. Functional status at discharge: independent ambulation Overall status at discharge: patient is back to baseline Time Spent with Patient Time attestation: Total time managing care of this patient today _20___ minutes. Time spent: Less than 30 minutes Discharge Plan Discharge Anticipated Discharge Date/Time: 06/18/24 15:00 Patient Disposition: Home, Self-Care Discharge Diagnosis: MDD, PTSD, Alcohol use d/o Referrals: [facility] [Other] - 1 Week (If you do not hear from [facility] regarding an intake appointment please call the above number and inquire about the referral that was made for you by [facility]. ) Nancy Kruger MD [Primary Care Provider] - 1 Week Discharge Medications: Continued lorazepam 0.5 mg tablet 0.5 mg PO BEDTIME PRN (Reason: Anxiety) 7 Days Qty: 7 0RF Changed amitriptyline 10 mg tablet 20 mg PO BEDTIME 7 Days Qty: 14 0RF Discharge Orders: Discharge Order (Routine); Ordered 06/18/24 Ordered By: Ramya Carter Diet: Regular diet Activity on Discharge: As tolerated Stand Alone Forms: Patient Portal Discharge page Print Language: Turkish Care Plan Goals: Maintain mood and safe behaviors Take medications as prescribed Continue to pursue sobriety Practice coping skills Continue with outpatient providers and reach out to them as needed Health Concerns: Mood stability and behaviors Sobriety Plan of Treatment: Follow up with your PCP, psychiatric provider and other outpatient providers regarding above concerns Take medications as prescribed Assessment: Patient has insight and demonstrates good judgment in terms of wanting to pursue treatment. Patient has a safety plan that includes presenting to the closest ER or calling 911 if feeling unsafe.
== END 2024-06-18 14:57 | disposition home or self-care (01) | DRG 885 ==
LOC: HO.ED 22:15 → HO.PADLT16 06-16 12:43
PROVIDERS: Admitting Provider Registered Nurse; Emergency Provider Emergency Medicine; PCP Family Medicine; Responsible Provider Registered Nurse; Visit Provider Psychiatry & Neurology Psychiatry
DX: F33.1 Major depressive disorder, recurrent, moderate (principal); R45.851 Suicidal ideations; Y90.8 Blood alcohol level of 240 mg/100 ml or more; F43.10 Post-traumatic stress disorder, unspecified; F10.929 Alcohol use, unspecified with intoxication, unspecified; Z91.51 Personal history of suicidal behavior; Z79.899 Other long term (current) drug therapy
CPT/HCPCS: 36415; 80053; 80061; 80143; 80179; 80307; 81003; 83036; 85025; 99284; S9485

== ENCOUNTER → 2024-06-16 12:37 | Outpatient (BNV) | payer OTHER, SELFPAY | PROVIDERS: Admitting Provider Registered Nurse; Emergency Provider Emergency Medicine; PCP Family Medicine; Responsible Provider Registered Nurse; Visit Provider Registered Nurse | DX: F33.1 Major depressive disorder, recurrent, moderate (principal); F43.11 Post-traumatic stress disorder, acute; F10.90 Alcohol use, unspecified, uncomplicated | CPT/HCPCS: 90792; 99231; 99238 ==

== ENCOUNTER 2024-07-01 01:16 | Emergency (ER) | payer OTHER, SELFPAY ==
--- NOTE | ~2024-07-01 | CT_ITS ---
CLINICAL HISTORY: Fall CT cervical spine without contrast Comparison: None Findings: Mild reversal of the normal cervical lordosis. Multilevel cervical spine degenerative changes are present, characterized by disc height loss, endplate sclerosis and disc osteophyte complex formation. No acute fractures or dislocations. Visualized intracranial contents are unremarkable. Soft tissues of the neck are normal. Lung apices are clear. IMPRESSION: No acute findings. This document has been electronically signed by: Wicho Cowan MD, PHD on 07/01/2024 04:59:46
--- NOTE | ~2024-07-01 | CT_ITS ---
CLINICAL HISTORY: Fall head injury CT head without contrast Comparison: None Findings: No intra-axial mass, midline shift, hydrocephalus, or acute hemorrhage. No significant atrophy-like change or white matter disease. There is no sinus or mastoid fluid. Large left preseptal periorbital hematoma and soft tissue swelling. No acute calvarial fracture. IMPRESSION: 1. No acute intracranial findings. This document has been electronically signed by: Wicho Cowan MD, PHD on 07/01/2024 05:04:42
--- NOTE | ~2024-07-01 | CT_ITS ---
CLINICAL HISTORY: Fall with left on hematoma. CT maxillofacial without contrast Comparison: None Findings: No acute fractures. Temporomandibular joints are intact. Minimal maxillary sinus mucosal thickening is present. Mastoid air cells are clear. Marked left preseptal periorbital soft tissue swelling and hematoma Globes orbits and extraocular muscles are intact. Visualized intracranial contents are within normal limits. No foreign bodies. IMPRESSION: Severe left preseptal periorbital soft tissue swelling and hematoma. This document has been electronically signed by: Wicho Cowan MD, PHD on 07/01/2024 05:01:58
[2024-07-01 01:24] VITALS: BP 111/62; PULSE 113; RESP 16; TEMP 36.7; O2SAT 94
--- NOTE | 2024-07-01 01:40 | ED.FALL ---
HPI - Fall General Chief Complaint: Fall Stated Complaint: Fall ETOH [place] LOC Time Seen by Provider: 07/01/24 01:24 Source: patient and EMS Mode of arrival: EMS Limitations: no limitations History of Present Illness ED Provider: DR. Steven HPI Narrative: 54-year-old female brought in by ambulance for evaluation after a mechanical fall, patient admitted to drinking alcohol before the fall patient tripped and fell landed face down hitting her left eye, +LOC, +neck pain, no chest pain, no shortness of breath, no abdominal pain, no blood thinners. Patient declined SI or HI or hallucination. Related Data Previous Rx's ?Medication ?Instructions ?Recorded amitriptyline 10 mg tablet 20 mg (2 x 10 mg) PO BEDTIME 7 06/18/24 days #14 tabs lorazepam 0.5 mg tablet 0.5 mg PO BEDTIME PRN Anxiety 7 06/18/24 days #7 tabs Allergies Allergy/AdvReac Type Severity Reaction Status Date / Time meperidine [From Demerol] Allergy Anaphylaxis Verified 07/01/24 01:44 morphine Allergy Anaphylaxis Verified 07/01/24 01:44 quetiapine [From Seroquel] Allergy Anaphylaxis Verified 07/01/24 01:44 tramadol Allergy Anaphylaxis Verified 07/01/24 01:44 Review of Systems Review of Systems: All other systems are reviewed and are negative Constitutional: Reports as per HPI and Reports no additional constitutional complaints Eyes: Reports as per HPI and Reports no additional eye complaints Reports system reviewed and no additional complaints, except as documented Cardiovascular: Reports as per HPI and Reports no additional cardiovascular complaints Respiratory: Reports as per HPI and Reports no additional respiratory complaints Gastrointestinal: Reports as per HPI and Reports no additional gastrointestinal complaints Genitourinary: Reports no additional female genitourinary complaints Musculoskeletal: Reports no additional musculoskeletal complaints Skin/Breast: Reports system reviewed and no additional complaints, except as docu Psychiatric: Reports no additional psychiatric complaints Endocrine: Reports no additional endocrine complaints Hematologic/Lymphatic: Reports no additional hematologic/lymphatic complaints Allergic/Immunologic: Reports no additional allergic/immunologic complaints Reports system reviewed and no additional complaints, except as documented and Reports Abnormal speech present PMFSH Past Medical History Medical History Suicidal ideation Social History Social History Household Members: None Housing: Homeless Do you presently have visiting nurse or other home services: No Patient Tobacco Use Status: Never used Tobacco Smoked in Last 30 Days: Yes e-Cigarette/Vaping Use: Never Used Use of substances other than those prescribed or required for medical reasons: No Advance Directives: No Advance Directives Information Provided: Yes Patient : No service: No Sexual orientation: Unable to collect Physical Exam Vital Signs: Vital Signs: Last Vital Signs Temp 98.0 F 07/01/24 01:24 Pulse 113 H 07/01/24 01:24 Resp 16 07/01/24 01:24 BP 111/62 07/01/24 01:24 Pulse Ox 94 07/01/24 01:24 O2 Del Method Room Air 07/01/24 01:24 BMI result Body Mass Index 20.0 Vital signs have been reviewed and appear to be correct. Blood pressure elevated. Heart rate normal. Respiratory rate normal. Temperature normal. Oxygen saturation normal. Appearance: Alert. Oriented X3. No acute distress. Head: Normal external exam. Normocephalic. Atraumatic. No Barriga signs noted. No raccoon eyes noted Eyes: Left periorbital swelling, complete eye exam is limited secondary to severe eyelid swelling. ENT: TM's Normal. Pharynx normal. Uvula midline. Moist mucous membranes. No trismus noted. No drooling noted. No muffled voice noted. Neck: Normal inspection. Neck supple. FROM. No adenopathy. Thyroid Normal. No meningeal signs. No neck mass noted. CVS: Normal heart rate and rhythm. Heart sound normal. No murmurs noted. Pulses normal throughout. Respiratory: No respiratory distress. Painless inspiration. Breath sounds normal. No wheezes/rales/rhonchi noted. Chest nontender. No accessory muscle usage noted or decreased air movement noted. Abdomen: Soft and nontender. Bowel sounds normal in all 4 quadrants. No distention noted. No organomegaly noted. No visible injury noted. Back: No CVA tenderness. Full range of motion noted. Skin: Skin warm and dry. Normal skin color. Normal skin turgor. No rashes/lesions/lacerations noted. Extremities: No lower extremity edema. Extremities exhibit normal range of motion. Extremities nontender. Neuro: Oriented X 3. GCS of 15 Cranial nerve exam: II-XII are grossly intact No motor deficit. No sensory deficit. Reflexes normal. Course Reevaluation(s) Reevaluation #1: Patient was GCS of 15, normal neuro exam, head CT is unremarkable. Significant left periorbital hematoma with no injuries on the CT patient was instructed to use ice. Cervical spine is unremarkable. Patient is AAO x3, able to ambulate in the ED with steady gait, patient will be walking home about 2 hours walking distance. Time: 06:18 Medical Decision Making Differential Diagnosis Differential Diagnoses: The differential diagnosis associated with the presentation includes (Facial fracture, periorbital hematoma, intracranial bleed, cervical spine fracture, extremity injury, chest injury, abdominal injury, alcohol intoxication.) Admission/Observation Consideration of admission/observation: Escalation of care including admission/observation considered Lab Data MDM Lab Attestation statement: I reviewed the patient's lab results. Labs: Lab Results 07/01/24 Range/Units 03:09 Ethyl Alcohol 272 mg/dL Independent Interpretation I performed an independent interpretation of an: CT Scan (Head/cervical spine/facial:Severe left preseptal periorbital soft tissue swelling and hematoma.) Radiology Impression Discussion of test interpretation with radiology: I have reviewed the radiologist's reading. Discharge Plan Discharge Clinical Impression: Alcohol intoxication, Periorbital hematoma of left eye, Closed head injury Patient Disposition: Home, Self-Care Instructions: Head Injury (ED), Alcohol Intoxication (ED) Prescriptions: No Action lorazepam 0.5 mg tablet 0.5 mg PO BEDTIME PRN (Reason: Anxiety) 7 Days Qty: 7 0RF amitriptyline 10 mg tablet 20 mg PO BEDTIME 7 Days Qty: 14 0RF Print Language: Ukrainian
[2024-07-01 01:41] VITALS: BP 115/77; PULSE 112
[2024-07-01 03:29] LABS: Ethanol 272 mg/dL
--- NOTE | 2024-07-01 05:44 | MHC.EDTECH ---
pt refused vitals
[2024-07-01 06:51] VITALS: BP 132/78; PULSE 78; RESP 20; TEMP 36.9; O2SAT 97
== END 2024-07-01 07:02 | disposition home or self-care (01) ==
PROVIDERS: Emergency Provider Emergency Medicine
DX: F10.129 Alcohol abuse with intoxication, unspecified (principal); Y90.8 Blood alcohol level of 240 mg/100 ml or more; S00.12XA Contusion of left eyelid and periocular area, initial encounter; S06.9XAA Unspecified intracranial injury with loss of consciousness status unknown, initial encounter; W01.0XXA Fall on same level from slipping, tripping and stumbling without subsequent striking against object, initial encounter; Y93.89 Activity, other specified; Y92.9 Unspecified place or not applicable; Y99.9 Unspecified external cause status; M54.2 Cervicalgia
CPT/HCPCS: 36415; 70450; 70486; 72125; 80307; 99284

== ENCOUNTER → 2024-07-01 01:36 | Outpatient (BNV) | payer OTHER, SELFPAY | PROVIDERS: Emergency Provider Emergency Medicine; Visit Provider General Practice | DX: M50.30 Other cervical disc degeneration, unspecified cervical region (principal); S05.12XA Contusion of eyeball and orbital tissues, left eye, initial encounter; S09.90XA Unspecified injury of head, initial encounter | CPT/HCPCS: 70450; 70486; 72125 ==

== ENCOUNTER 2024-09-03 00:24 | Emergency (ER) | payer MEDICAID, SELFPAY ==
[2024-09-03] VITALS (9 sets, daily range): BP systolic 88–140; BP diastolic 44–90; PULSE 83–140; RESP 12–25; TEMP 36.3–36.7; O2SAT 90–95; BMI 25.4
[2024-09-03] MEDS: diazePAM 10 MG/2 ML CARTRIDGE IM (01:05)
--- NOTE | 2024-09-03 01:48 | PC.NURSE ---
Patient BIB [facility] for alcohol intoxication. Patient was found by PD face down on street, intoxicated and altered. When EMS arrived patent was altered and combative, behavioral restraints applied by EMS, patient was given Versed 5 mg IM in route to ED. Patient arrived to ED calm and restraints were removed. Patient admits drinking 8 shots of whiskey prior coming to ED, patient denies SI/HI. Patient changed over into a hospital attire by security in presence of this RN and [employer] tech, belongings secured in [facility]. Patient requested to leave her belongings at bedside with her, became agitated, combative, requesting to leaving ED and was not redirectable. Patient medicated with Benadryl 50 mg IM, Haldol 5 mg IM, and Diazepam 10 mg per MD order and 4 point behavioral restraints applied. RR 19, patient removed BP cuff and engine monitor leads.
--- NOTE | 2024-09-03 01:52 | MHC.EDTECH ---
This tech took over this patient. Patient restrained and uncooperative at this moment. Will attempt to do lab work later after patient becomes calm and cooperative.
[2024-09-03 02:05] LABS: MANUAL DIFF FLAG NO
[2024-09-03 02:07] LABS: Hematocrit 33.5 % (37.0-47.0); Hemoglobin 11.9 g/dl (12.0-16.0); Imm Gran Abs Auto 0.03 X10*3/uL (0.00-0.03); Imm Gran Pct Auto 0.4 % (0.0-0.4); Lymphocytes Absolute Auto 2.0 X10*3/uL (1.2-4.9); Mean Corpuscular HGB Conc 35.5 g/dl (31.0-35.0); Mean Corpuscular Hemoglobin 33.6 pg (27.0-33.0); Mean Corpuscular Volume 94.6 fL (80.0-98.0); NRBC Abs Auto 0.000 X10*3/uL (0.0-0.012); NRBC Pct Auto 0.0 /100WBC (0.0-0.2); Platelet Count 196 X10*3/uL (160-400); Red Blood Count 3.54 X10*6/uL (4.20-5.50); White Blood Count 7.9 X10*3/uL (4.8-10.8)
--- NOTE | 2024-09-03 02:20 | PC.NURSE ---
BP 88/44, DR. Soriano notified. 20 G iV line established in R AC, bolus of 1 L NS hung and infusing without issues.
[2024-09-03 02:22] LABS: Alanine Aminotransferase 14 U/L (0-31); Albumin Level 3.9 g/dL (3.5-5.0); Alkaline Phosphatase 73 U/L (39-117); Anion Gap 16 (12-20); Aspartate Amino Transferase 32 U/L (5-31); Blood Urea Nitrogen 16 mg/dL (9-16); Calcium 8.7 mg/dL (8.4-10.2); Carbon Dioxide 19 mmol/L (22-29); Chloride 114 mmol/L (96-108); Creatinine Clr Calc Pharmacy 69.6; Estimated Glomerular Filt Rate > 60; Potassium 3.6 mmol/L (3.3-5.1); Sodium 145 mmol/L (135-145); Total Protein 6.4 g/dL (6.5-8.0)
--- NOTE | 2024-09-03 02:27 | ED.GENADULT ---
HPI - General Adult General Chief complaint: ETOH/Substance Use Stated complaint: Substance abuse and combative Time Seen by Provider: 09/03/24 00:32 Source: EMS Mode of arrival: EMS Limitations: altered mental status History of Present Illness ED Provider: Dr. Catie Soriano HPI narrative: Patient comes to the emergency room via ambulance and PD for alcohol intoxication. According to EMS, they were called because PD found the patient face down on a street, intoxicated, acting erratic. When EMS arrived, the patient was awake, alert, combative. EMS had to give the patient 5 mg IM of Versed in had to be physically restrained. On arrival to the ED, patient is still a bit combative. Patient denies SI or HI, patient admits that she has been drinking whiskey. Patient states that she did not fall, denies headache or any neck pain. Patient complaining of an abrasion on her left heel Related Data Previous Rx's ?Medication ?Instructions ?Recorded amitriptyline 10 mg tablet 20 mg (2 x 10 mg) PO BEDTIME 7 06/18/24 days #14 tabs lorazepam 0.5 mg tablet 0.5 mg PO BEDTIME PRN Anxiety 7 06/18/24 days #7 tabs Allergies Allergy/AdvReac Type Severity Reaction Status Date / Time meperidine (From Demerol) Allergy Anaphylaxis Verified 09/03/24 00:49 morphine Allergy Anaphylaxis Verified 09/03/24 00:49 quetiapine (From Seroquel) Allergy Anaphylaxis Verified 09/03/24 00:49 tramadol Allergy Anaphylaxis Verified 09/03/24 00:49 Review of Systems Review of Systems: Admits to drinking alcohol Yes Other (Alcohol intoxication) [facility] Past Medical History Medical History Suicidal ideation Social History Social History Household Members: None Housing: Homeless Do you presently have visiting nurse or other home services: No Patient Tobacco Use Status: Never used Tobacco Smoked in Last 30 Days: Yes e-Cigarette/Vaping Use: Never Used Use of substances other than those prescribed or required for medical reasons: No Patient : No service: No Sexual orientation: Unable to collect Physical Exam ED Exam Exam: Appearance: Alert. Combative, throwing punches Eyes: Pupils equal, round and reactive to light. ENT: Pharynx normal. Neck: Normal inspection. Neck supple. No lymph nodes noted. No crepitus CVS: Normal heart rate and rhythm. Pulses normal. Normal S1 and S2 Respiratory: No respiratory distress. Breath sounds normal. No Wheezing. No rales Abdomen: Soft and nontender. No rigidity. No distention. Skin: Skin warm and dry. Normal skin color. Normal skin turgor. Extremities: No lower extremity edema. No Lacerations. No Rash Neuro: Cranial nerves 2-12 are grossly intact Psych: Intoxicated, throwing punches, belligerent Vital Signs: Vital Signs - 24 hr 09/03/24 00:46 Temperature 98.1 F Pulse Rate 114 H Respiratory Rate 25 H Blood Pressure 102/69 Pulse Oximetry 92 Oxygen Delivery Method Nasal Cannula BMI result Body Mass Index 25.4 Course Course Course Narrative: Patient is intoxicated, aggressive, belligerent. Almost falling out of bed, trying to assault staff Patient's nurse and security staff try redirected in the patient. However, patient became aggressive. Patient needed to be physically and chemically restrained at 01:05. Patient received a dose of IM diazepam 10 mg, Haldol 5 mg, Benadryl 50 mg After 1 hour, patient is sleeping, physical restraints were removed Medications Administered Generic Name Dose Route Start Last Admin Trade Name Freq PRN Reason Stop Dose Admin Sodium Chloride 1,000 mls @ 999 mls/hr 09/03/24 02:15 09/03/24 02:03 Ns IV 09/03/24 03:15 999 mls/hr .[id number] CORINA Administration Discontinued Medications Generic Name Dose Route Start Last Admin Trade Name Freq PRN Reason Stop Dose Admin Diazepam 10 mg 09/03/24 01:04 09/03/24 01:05 Diazepam 10 Mg/2 Ml Cartridge IM 09/03/24 01:05 10 mg STAT STA Administration Diphenhydramine HCl 50 mg 09/03/24 01:04 09/03/24 01:05 Diphenhydramine Hcl 50 Mg/Ml Vial IM 09/03/24 01:05 50 mg ONCE ONE Administration Haloperidol Lactate 5 mg 09/03/24 01:04 09/03/24 01:05 Haloperidol Lactate 5 Mg/Ml Vial IM 09/03/24 01:05 5 mg ONCE ONE Administration Medical Decision Making Medical Decision Making [facility] Narrative: Physician observation started at 02:05 Differential Diagnosis Differential Diagnoses: The differential diagnosis associated with the presentation includes (Alcohol intoxication, drug abuse) Admission/Observation Consideration of admission/observation: Escalation of care including admission/observation considered (Patient is under physician observation waiting to become clinically sober) Lab Data 09/03/24 02:01 09/03/24 02:00 Labs: Lab Results 09/03/24 Range/Units 02:00 Sodium 145 (135-145) mmol/L Potassium 3.6 D (3.3-5.1) mmol/L Chloride 114 H (96-108) mmol/L Carbon Dioxide 19 L (22-29) mmol/L Anion Gap 16 (12-20) BUN 16 (9-16) mg/dL Creatinine 0.87 (0.5-1.4) mg/dL Estim Creat Clear Calc 69.6 Estimated GFR > 60 Random Glucose 99 (60-115) mg/dL Calcium 8.7 D (8.4-10.2) mg/dL Total Bilirubin 0.1 (0.0-1.0) mg/dL Direct Bilirubin < 0.2 (0.0-0.5) mg/dL AST 32 H (5-31) U/L ALT 14 (0-31) U/L Alkaline Phosphatase 73 (39-117) U/L Total Protein 6.4 L (6.5-8.0) g/dL Albumin 3.9 (3.5-5.0) g/dL Ethyl Alcohol 241 mg/dL Critical Care Time Critical Care Time Critical Care Time: Yes Total Critical Care Time: 45 Attestation: I have personally provided critical care time. Time includes review of lab data, radiology results, discussion with consultants, and monitoring for potential decompensation. Intervention performed as documented. Discharge Plan Discharge Clinical Impression: Alcoholic intoxication, Aggressive behavior Prescriptions: No Action lorazepam 0.5 mg tablet 0.5 mg PO BEDTIME PRN (Reason: Anxiety) 7 Days Qty: 7 0RF amitriptyline 10 mg tablet 20 mg PO BEDTIME 7 Days Qty: 14 0RF Print Language: Albanian
--- NOTE | 2024-09-03 02:56 | PC.NURSE ---
4 point behavioral restraints removed at 02:05 am, patient is currently sleeping in stretcher bed, no behavioral issues noted at this time.
--- NOTE | 2024-09-03 05:21 | PC.NURSE ---
Patient continues to sleep without issue, respirations even and unlabored, no apparent distress noted, VSS, call hudson in patient's reach.
--- OUTSIDE RECORDS SUMMARY | 2024-09-03 06:56 | XMS_ITS | Encounter Summary ---
Author Organization [facility] Address [address] [place] [id number] Phone Care Team Providers Care Saw Edge Fuser Circular Name Role Phone Nancy Kruger MD Primary Care Provider [phone] Encounter Details Date Type Department Care Team (Late st Contact Info) Description 10/31/2020 Procedure Pass [address] [address] Social History Tobacco Use Types Packs/Day Years Used Date Smoking Tobacco: Never Smokeless Tobacco: Never Alcohol Use Standard Drinks/Week Comments Never 0 (1 standard drink = 0.6 oz pur e alcohol) Comments No Sex and Gender Information Value Date Recorded Sex Assigned at Female 07/12/2020 11:07 AM EDT Legal Sex Female 9:34 PM EDT Gender Identity Female 07/12/2020 11:07 AM EDT Sexual Orientation Straight 11/24/2021 11 :59 PM EDT 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 It is not the complete legal health record.[facility]
--- OUTSIDE RECORDS SUMMARY | 2024-09-03 06:56 | XMS_ITS | Clinical Summary ---
Author Organization [facility] Address [address] [place] [id number] Care Team Providers Care Cook Helper Meat Name Role Phone Unavailable Primary Care Provider Unavailabl e Medications No known medications Active Problems Problem Noted Date Diagnosed Date Substance abuse 04/15/2018 Family History Medical History Relation Comments No Known Problems Brother No Known Problems Cousin No Known Problems Daughter No Known Problems Father No Known Problems Maternal Grandfather No Known Problems Maternal Grandmother No Known Problems Mother No Known Problems Paternal Grandfather No Known Problems Paternal Grandmother No Known Problems Sister No Known Problems Son Asthma Neg Hx Diabetes Neg Hx Heart failure Neg Hx Hyperlipidemia Neg Hx Hypertension Neg Hx Migraines Neg Hx Osteoarthritis Neg Hx Rashes / Skin problems Neg Hx Rheum arthritis Neg Hx Seizures Neg Hx Stroke Neg Hx Thyroid disease Neg Hx Relation Status Comments Brother Cousin Daughter Father Maternal Grandfather Maternal Grandmother Mother Paternal Grandfather Paternal Grandmother Sister Son Social History Tobacco Use Types Packs/Day Years Used Date Smoking Tobacco: Unknown Alcohol Use Standard Drinks/Week Comments Yes 0 (1 standard drink = 0.6 oz pur e alcohol) PT WILL NOT SPECIFY Comments Unknown Sex and Gender Information Value Date Recorded Sex Assigned at Not on file Legal Sex Female 11:53 PM EST Gender Identity Not on file Sexual Orientation Not on file Last Filed Vital Signs Vital Sign Reading Time Taken Comments Blood Pressure 90/65 04/15/2018 5:00 AM EST Pulse 91 04/15/2018 5:00 AM EST Temperature 37 C (98.6 F) 04/15/2018 5:00 AM EST Respiratory Rate 18 04/15/2018 5:00 AM EST Oxygen Saturation 95% 04/15/2018 5:00 AM EST Inhaled Oxygen Concentration - - Weight 72.6 kg (160 lb) 04/15/2018 9:26 AM EST Height 170.2 cm (5' 7 ) 04/15/2018 9:26 AM EST Body Mass Index 25.06 04/15/2018 9:26 AM EST Plan of Treatment Not on file Insurance [employer]ULI ALBARADO MEDICARE PART A ONLY [facility]
== END 2024-09-03 07:06 | disposition home or self-care (01) ==
LOC: HO.ED 06:55
PROVIDERS: Emergency Provider Emergency Medicine
DX: F10.120 Alcohol abuse with intoxication, uncomplicated (principal); Y90.8 Blood alcohol level of 240 mg/100 ml or more; R45.6 Violent behavior; R51.9 Headache, unspecified; Z78.1 Physical restraint status; F33.1 Major depressive disorder, recurrent, moderate; F43.10 Post-traumatic stress disorder, unspecified; Z79.899 Other long term (current) drug therapy
CPT/HCPCS: 36415; 80048; 80076; 80307; 85025; 96360; 96372; 99285; J1200; J1630; J3360